=== PATIENT | female | born 1950 | race Caucasian/White ===

== ENCOUNTER 2016-08-31 12:04 | Emergency (ER) | payer BC, MEDICARE ==
[2016-08-31] MEDS ORDERED: HYDROmorphone HCL 1 MG/ML SYR ONE (13:26)
--- NOTE | 2016-08-31 13:43 | ER NURSING DOCUMENTATION ---
Nurse's Notes [facility] Name:Joyce Walls Age:65 yrs Sex:Female :1950 Arrival Date:08/31/2016 Time:12:04 Bed6 Private MD: Diagnosis:Hip Pain Presentation: 08/31 12:06 Acuity: IRVIN 3 12:11 Presenting complaint: Patient states: C/O LEFT HIP PAIN TODAY, NO FALL, WAS BENDING lc OVER IN A CAVE YESTERDAY. TRIED TYLENOL AND NORCO X 1 FOR PAIN. Transition of care: patient was not received from another setting of care. 12:11 Method Of Arrival: Private Vehicle Triage Assessment: 12:14 General: Appears uncomfortable, Behavior is appropriate for age, cooperative. Pain: lc Complains of pain in left lower back Pain does not radiate. Pain At worst was 8 out of 10 on a pain scale. Quality of pain is described as throbbing. Neuro: Level of Consciousness is awake, alert, Oriented to person, place, time, event, Gait is shuffling, DUE TO PAIN. Derm: Skin is pink, warm & dry. Musculoskeletal: Circulation, motion, and sensation intact Capillary refill < 3 seconds Range of motion intact in all extremities. Tenderness present in low back area and left low back. Historical: - Allergies: Aleve; PENICILLINS; - Home Meds: 1. Bupropion Oral 2. citalopram oral 3. carvedilol oral 4. losartan oral 5. Furosemide Oral 6. Metformin Oral 7. Lantus Sub-Q 8. gabapentin oral - PMHx: Diabetes - IDDM; NEUROPATHY; - PSHx: KNEE SURGERY; - Tetanus: < 10 years. - Ebola Screening: : Patient negative for fever greater than or equal to 101.5 degrees Fahrenheit, and additional compatible Ebola Virus Disease symptoms. Patient denies exposure to infectious person. Patient denies travel to an Ebola-affected area in the 21 days before illness onset. No symptoms or risks identified at this time. . - Immunization history: Flu Vaccine < 1 year. - Social history: Smoking status: Patient states was never smoker of tobacco. Screenin:18 Infectious Disease Risk None. Abuse screen: Denies threats or abuse. Denies injuries lc from another. Nutritional screening: No deficits noted. Assessment: 12:17 See Triage Assessment done by same RN. Vital Signs: 12:13 BP 136 / 77; Pulse 96; Resp 14; Temp 98.7(O); Pulse Ox 93% on R/A; Pain 9/10; tg 12:17 Weight 83.91 kg; Height 5 ft. 4 in. (162.56 cm); lc 13:18 Pulse 92; Resp 16; Pulse Ox 93% on R/A; Pain 7/10; lc 13:39 Pulse 76; Resp 16; Pulse Ox 93% on R/A; Pain 4/10; lc 12:17 Body Mass Index 31.75 (83.91 kg, 162.56 cm) ED Course: 12:05 Patient arrived in ED. em3 12:06 Anna Mcgregor, RN is Primary Nurse. 12:06 Triage completed. 12:13 Primary Nurse role handed off by Anna Mcgregor, JEFE tg 12:13 Toribio Zapata, RN is Primary Nurse. tg 12:18 Valuables Remains with patient Patient has correct armband on for positive lc identification. Placed in gown. Bed in low position. Call light in reach. Adult w/ patient. 12:28 Braxton Hamm MD is Attending Physician. tl1 12:37 Port Xray Completed. ms 13:17 Anna Mcgregor, RN is Primary Nurse. Administered Medications: 13:15 Drug: Dilaudid 1 mg; Route: IM; Site: left gluteus; lc 13:39 Follow up: Pulse 76 bpm; Resp 16 bpm; Pulse Ox 93% RA; Pain 4/10 Adult 13:40 Follow up: Response: Pain is decreased Outcome: 13:12 Discharge ordered by . tl1 13:40 Discharged to home via wheelchair, with significant other. 13:40 Condition: stable 13:40 Discharge Assessment: Patient awake, alert and oriented x 3. No cognitive and/or functional deficits noted. Patient verbalized understanding of disposition instructions. 13:40 Discharge instructions given to patient, significant other, Instructed on discharge instructions, follow up and referral plans. medication usage, GETTING HER CANE FROM HOME Demonstrated understanding of instructions, medications, Prescriptions given X 1. 13:43 Patient left the ED. Signatures: Toribio Zapata RN RN Anna Mcgregor RN RN Alethea Penny ms CarsonMario montoya em3 Braxton Hamm, MD MD tl1
--- NOTE | 2016-09-02 10:41 | RADIOLOGY REPORT ---
Two views of the left hip demonstrate no displaced fracture or dislocation. The visualized joints appear unremarkable. IMPRESSION: No displaced injury is identified. Occult pelvic fractures are common in this age group and may require further evaluation and/or followup for detection. MARCIAD
--- NOTE | 2016-09-02 13:43 | ER PHYSICIAN DOCUMENTATION ---
Physician Documentation [facility] Name:Joyce Walls Age:65 yrs Sex:Female :1950 Arrival Date:08/31/2016 Time:12:04 Bed6 Private MD: Braxton Juares Disposition: 09/01 08:16 Chart complete. tl1 Disposition: 08/31/16 13:12 Discharged to Home/Self Care. Impression: Hip Pain. - Condition is Good. - Discharge Instructions: HIP STRAIN. - Prescriptions for Morrow 7.5- 325 mg Oral Tablet - take 1 tablet by ORAL route every 6 hours As needed; 20 tablet. - Medical Reconciliation form form. - Follow up: Private Physician; When: 4- 6 days; Reason: Recheck today's complaints, Continuance of care. - Problem is new. - Symptoms are unchanged. - Notes: TRY TO SEE A PRIMARY CARE DOCTOR IF SYMPTOMS PERSIST.. YOU MAY NEED AN MRI OF YOUR HIP. USE A CANE WHEN YOU ARE WALKING. AVOID PAINFUL ACTIVITIES MUCH POSSIBLE FOR THE NEXT FEW DAYS. ADVANCE ACTIVITY SYMPTOMS ALLOW. HPI: 08/31 13:00 This 65 yrs old Female presents to ER via Private Vehicle with complaints of tl1 Hip Pain. 13:00 The patient or guardian reports decreased range of motion, an injury, pain. 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 Since then she has a lot of pain with ambulation. Denies other recent or remote injury. No other complaints. Historical: - Allergies: Aleve; PENICILLINS; - Home Meds: 1. Bupropion Oral 2. citalopram oral 3. carvedilol oral 4. losartan oral 5. Furosemide Oral 6. Metformin Oral 7. Lantus Sub-Q 8. gabapentin oral - PMHx: Diabetes - IDDM; NEUROPATHY; - PSHx: KNEE SURGERY; - Tetanus: < 10 years. - Ebola Screening: : Patient negative for fever greater than or equal to 101.5 degrees Fahrenheit, and additional compatible Ebola Virus Disease symptoms. Patient denies exposure to infectious person. Patient denies travel to an Ebola-affected area in the 21 days before illness onset. No symptoms or risks identified at this time. . - Immunization history: Flu Vaccine < 1 year. - Social history: Smoking status: Patient states was never smoker of tobacco. ROS: 13:00 MS/extremity: Positive for pain, of the left hip. tl1 13:00 All other systems are negative. Exam: 13:00 Constitutional: This is a well developed, well nourished patient who is awake, alert, tl1 and in no acute distress. 13:00 Head/Face: Normocephalic, atraumatic. tl1 13:00 Cardiovascular: Rate: 13:00 Respiratory: Respirations: normal, Breath sounds: are normal. 13:00 Musculoskeletal/extremity: Extremities: grossly normal except: noted in the left hip: pain, tenderness, There is no evidence of decreased ROM, deformity, ecchymosis, erythema, swelling. Vital Signs: 12:13 BP 136 / 77; Pulse 96; Resp 14; Temp 98.7(O); Pulse Ox 93% on R/A; Pain 9/10; tg 12:17 Weight 83.91 kg; Height 5 ft. 4 in. (162.56 cm); lc 13:18 Pulse 92; Resp 16; Pulse Ox 93% on R/A; Pain 7/10; lc 13:39 Pulse 76; Resp 16; Pulse Ox 93% on R/A; Pain 4/10; lc 12:17 Body Mass Index 31.75 (83.91 kg, 162.56 cm) lc MDM: 12:38 Patient medically screened. tl1 13:00 Differential diagnosis: intertrochanteric fracture, femoral neck fracture, bursitis, tl1 arthritis, strain. Data reviewed: vital signs, nurses notes, radiologic studies, plain films, and as a result, I will discharge patient. Test interpretation: by ED physician or midlevel provider: plain radiologic studies. Counseling: I had a detailed discussion with the patient and/or guardian regarding: the historical points, exam findings, and any diagnostic results supporting the discharge/admit diagnosis, radiology results, the need for outpatient follow up, for definitive care, for a referral to a specialist, a orthopedic surgeon. Response to treatment: the patient's symptoms have mildly improved after treatment, and as a result, I will discharge patient. ED course: In the absence of significant trauma, and no apparent lesion on x-ray of the left hip, I think an occult or pathologic fracture is unlikely. Am suspicious of gluteus medius tear at insertion on the greater trochanter. Bursitis not likely to come on so quickly. I suspect MRI would be helpful, but is not available now.. 09/02 11:43 Order name: HIP;W/PEL 2-[place] [id number] EDMS Dispensed Medications: 13:15 Drug: Dilaudid 1 mg; Route: IM; Site: left gluteus; lc 13:39 Follow up: Pulse 76 bpm; Resp 16 bpm; Pulse Ox 93% RA; Pain 07/07 Adult lc 13:40 Follow up: Response: Pain is decreased lc Signatures: Toribio Zapata RN RN Anna Murillo RN RN Braxton Haro MD MD tl1
== END 2016-08-31 13:43 | disposition home or self-care (01) ==
LOC: ER 12:04
DX: M25.552 Pain in left hip (principal); E11.9 Type 2 diabetes mellitus without complications; Z79.899 Other long term (current) drug therapy; Z79.4 Long term (current) use of insulin
CPT/HCPCS: 96372; 99283; J1170